=== PATIENT | male | born 1965 | race Caucasian/White ===

== ENCOUNTER → 2019-01-29 | Outpatient (CLI) | payer MEDICARE, OTHER ==
[~2019-01-29] MED LIST: ARIP5TAB14 PO; DULO60CA59 PO; FLAX100016 PO; MULT-902 PO
== END | disposition home or self-care (01) ==
LOC: U/S 11:14
PROVIDERS: ATTEND Internal Medicine Hematology & Oncology
DX: C83.32 Diffuse large B-cell lymphoma, intrathoracic lymph nodes (principal)
CPT/HCPCS: 76700